=== PATIENT | male | born 1960 | race Asian ===

== ENCOUNTER → 2021-05-07 | Day surgery (SDC) | payer OTHER ==
[~2021-05-07] MED LIST: FENOFIBRATE145 MG PO; LOSARTAN-HCTZ1 EAC1 PO; OMEPRAZOLE40 MG PO; VIREAD300 MG PO
[2021-05-07 11:35] VITALS: BP 114/91
== END | disposition home or self-care (01) ==
LOC: OR 07:19
PROVIDERS: ATTEND Internal Medicine Gastroenterology
DX: K21.9 Gastro-esophageal reflux disease without esophagitis (principal); D12.3 Benign neoplasm of transverse colon; K29.70 Gastritis, unspecified, without bleeding; K20.90 Esophagitis, unspecified without bleeding; K44.9 Diaphragmatic hernia without obstruction or gangrene; K31.89 Other diseases of stomach and duodenum; R19.7 Diarrhea, unspecified; K57.30 Diverticulosis of large intestine without perforation or abscess without bleeding; K64.8 Other hemorrhoids; B19.10 Unspecified viral hepatitis B without hepatic coma; I10 Essential (primary) hypertension; E78.5 Hyperlipidemia, unspecified; F17.210 Nicotine dependence, cigarettes, uncomplicated; Z86.16 Personal history of COVID-19
CPT/HCPCS: 43239; 45378; 45384; 45385